=== PATIENT | female | born 1935 | race Caucasian/White ===

== ENCOUNTER 2022-03-08 22:08 | Emergency (ER) | payer MEDICARE, OTHER ==
[2022-03-08] MEDS ORDERED: Diphtheria,Pertussis(Acell),Tetanus Vaccine 0.5 ML Syringe IM ONE (22:15)
== END 2022-03-08 23:59 | disposition home or self-care (01) ==
LOC: JP.ED 22:08
DX: S81.812A Laceration without foreign body, left lower leg, initial encounter (principal); Z79.01 Long term (current) use of anticoagulants; Z23 Encounter for immunization; X58.XXXA Exposure to other specified factors, initial encounter
CPT/HCPCS: 90471; 90715; 99282-25